=== PATIENT | male | born 1985 | race Caucasian/White ===

== ENCOUNTER 2016-08-30 23:45 | Emergency (ER) | payer OTHER ==
--- NOTE | ~2016-08-30 | CR127 ---
[facility] A Service of [facility] & [facility] RADIOLOGY TEXT RESULTS PATIENT: MARCI GRANDE LOCATION: SED : 87 UNIT #: [id number] AGE: [address]: Riley Phillips MD SEX: M ORDER DR: [id number] [place] [id number] E MR#: [id number] Acc #: [id number] NAME: MARCI GRANDE : 1985 SEX: M STUDY DATE/TIME: 08/31/2016 0:11 UNIT: SED ROOM: STUDY DESCRIPTION: CR Foot Complete Min 3 View Rt Attending Physician: Riley Phillips M.D. Ordering Physician: Riley Phillips M.D. Primary Care Physician: Primary Care Physician No MEDICAL IMAGING REPORT This report is preliminary unless electronic signature is present. EXAM 3 views right foot 08/31/2016 HISTORY Right foot pain, puncture between the fourth and fifth toes tonight with a drill bit. Evaluate for foreign body. COMPARISON None. FINDINGS No fracture. No dislocation. No retained radiopaque foreign body. No appreciable osteoarthritic change. IMPRESSION Normal 3 views of the right foot. Dictated by... Mely Smith M.D. THIS IS AN ELECTRONICALLY VERIFIED REPORT Mely Smith M.D. at 08/31/2016 10:06 PM LONG/doug TD: 08/31/2016 06:09 JOB #: [id number] MEDICAL IMAGING REPORT Page 1 of 1
[~2016-08-30 23:45] MED LIST: AMOXICILLIN PO; AMOXICILLIN500 M1 PO; DICLOFENAC; FLEXERIL10 MG PO; IBUPROFEN800 MG PO; LANSOPRAZOLE30 MG PO; NAPROSYN500 MG PO; NO MEDICATIONS; PEPCID40 MG PO; TYLENOL #3 PO; VOLTAREN50 MG PO
[2016-08-30] MEDS ORDERED: NO MEDICATIONS (23:47)
== END 2016-08-31 01:15 | disposition home or self-care (01) ==
LOC: SED 23:45
DX: S91.331A Puncture wound without foreign body, right foot, initial encounter (principal); W29.8XXA Contact with other powered hand tools and household machinery, initial encounter
CPT/HCPCS: 73630; 99283